=== PATIENT | male | born 2000 | race Hispanic/Latino ===

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

== ENCOUNTER 2020-11-17 19:06 | Emergency (ER) | payer OTHER, SELFPAY ==
[2020-11-17 19:54] LABS: Protime INR 1.05
[2020-11-17 19:59] LABS: ALT/SGPT 37 U/L (12-78); AST/SGOT 33 U/L (15-37); Albumin 4.8 g/dL (3.4-5.0); Alkaline Phosphatase 96 U/L (45-117); BUN Blood Urea Nitrogen 13 mg/dL (7-18); Bicarbonate 25 mmol/L (21-32); Bilirubin Direct 0.2 mg/dL (0-0.2); Bilirubin Total 0.7 mg/dL (0.2-1.0); Glucose Level 224 mg/dL (74-106); Potassium 3.7 mmol/L (3.5-5.1); Protein, Total 8.7 g/dL (6.4-8.2); Sodium Level 140 mmol/L (136-145)
[2020-11-17] MEDS ORDERED: NA CHLORIDE 0.9% 1,000 ML ONE (20:29)
--- NOTE | 2020-11-17 20:29 | RAD REPORT ---
EXAM DESCRIPTION: CT - Head Brain Wo Cont - 11/17/2020 8:22 pm CLINICAL HISTORY: TRAUMA Headache, drowsiness COMPARISON: HEAD BRAIN W O CONTRAST dated 08/29/2013 TECHNIQUE: All CT scans are performed using dose optimization technique as appropriate and may inclu de automated exposure control or mA/KV adjustment according to patient size. FINDINGS: No intracranial hemorrhage, hydrocephalus or extra-axial fluid collection.Areas of gliosis are seen adjacent to the left frontal horn likely related to prior infarcts or trauma.No areas of br ain edema or evidence of midline shift. The paranasal sinuses and mastoids are clear. The calvarium is intact. IMPRESSION: No acute intracranial abnormality.
[2020-11-17] MEDS ORDERED: ONDANSETRON 4 MG/2 ML VIAL ONE (20:33)
[2020-11-17] MEDS ORDERED: FAMOTIDINE 20 MG/2 ML VIAL IV ONE (20:33)
[2020-11-17 20:41] LABS: Absolute Lymphocytes (CBC) 2.6 K/uL (0.7-4.9); Basophils % 0.9 % (0-1.3); Hematocrit 52.3 % (39.6-49.0); Lymphocytes % 27.9 % (15.3-44.8); MPV 8.4 fL (7.6-11.3); RBC Red Blood Cell Count 5.64 M/uL (4.33-5.43)
--- NOTE | 2020-11-17 21:03 | EDPHYS ---
Physician Documentation [facility] Name: Hussein Mejia Age: 20 yrs Sex: Male : 2000 Arrival Date: 11/17/2020 Time: 19:11 Bed 2 Private MD: ED Physician Marvin Guthrie HPI: 11/17 19:16 This 20 yrs old Male presents to ER via Unassigned with complaints of Altered jr8 Mental Status. 19:16 Patient arrived via EMS. They arrived on scene to find pt unresponsive after taking jr8 unknown substance. They administered 2 mg Narcan and pt was awake upon arrival. He reported taking white and blue Percocet. . Historical: - Allergies: 19:13 No Known Allergies; rr5 - Home Meds: 19:13 None [Active]; rr5 - PMHx: 19:13 None; rr5 - PSHx: 19:13 None; rr5 - Immunization history:: Adult Immunizations up to date. - Social history:: Smoking status: unknown Patient uses street drugs, marijuana, Patient/guardian denies using alcohol, tobacco products. ROS: 19:17 Constitutional: Positive for chills, Cold. jr8 19:17 Neuro: Positive for loss of consciousness. 19:18 Cardiovascular: Negative for chest pain, palpitations, and edema, Respiratory: Negative jr8 for shortness of breath, cough, wheezing, and pleuritic chest pain, Abdomen/GI: Negative for abdominal pain, nausea, vomiting, diarrhea, and constipation, MS/Extremity: Negative for injury and deformity. 19:18 All other systems are negative. Exam: 19:19 Constitutional: The patient appears awake, pale. jr8 19:19 Chest/axilla: Inspection: normal, Palpation: is normal. 19:19 Cardiovascular: Rate: normal, Rhythm: regular, Heart sounds: normal. 19:19 Respiratory: the patient does not display signs of respiratory distress, Respirations: normal, Breath sounds: are clear throughout, Respiratory rate: 12 19:19 Abdomen/GI: Inspection: abdomen appears normal, Bowel sounds: normal, Palpation: abdomen is soft and non-tender. 19:19 Neuro: Orientation: is normal, Mentation: responsive to voice lucid, slow to respond, sleepy, Memory: is normal, immediate memory is intact, recent memory is intact, remote memory is intact. 21:03 Eyes: Pupils equal round and reactive to light, extra-ocular motions intact. Lids and jr8 lashes normal. Conjunctiva and sclera are non-icteric and not injected. Cornea within normal limits. Periorbital areas with no swelling, redness, or edema. ENT: Nares patent. No nasal discharge, no septal abnormalities noted. Tympanic membranes are normal and external auditory canals are clear. Oropharynx with no redness, swelling, or masses, exudates, or evidence of obstruction, uvula midline. Mucous membranes moist. Neck: Trachea midline, no thyromegaly or masses palpated, and no cervical lymphadenopathy. Supple, full range of motion without nuchal rigidity, or vertebral point tenderness. No Meningismus. MS/ Extremity: Pulses equal, no cyanosis. Neurovascular intact. Full, normal range of motion. 21:03 Head/face: Noted is contusion, that is superficial, of the forehead. 21:03 Skin: Appearance: Color: normal in color, Temperature: cool, Moisture: dry. Vital Signs: 19:13 BP 148 / 89; Pulse 107; Resp 17; Temp 97; Pulse Ox 100% ; Weight 58.97 kg; Height 5 ft. rr5 10 in. (177.80 cm); Pain 0/10; 20:21 BP 133 / 70; Pulse 99; Resp 16; Pulse Ox 98% ; rr5 20:59 BP 125 / 65; Pulse 80; Resp 16; Pulse Ox 100% ; rr5 21:38 BP 121 / 70; Pulse 85; Resp 19; Pulse Ox 100% ; rr5 19:13 Body Mass Index 18.65 (58.97 kg, 177.80 cm) rr5 MDM: 19:12 Patient medically screened. jr8 20:39 ED course: Pt is awake and alert. He is using urinal on his own and is tolerating PO jr8 intake well. . 20:53 ED course: Patient is going to return home to his sisters house and he verbalizes he jr8 will stay with her tonight. He was educated that his renal function was off but will resolve with hydration that was provided by ED. Pt verbalizes understanding. . 21:01 Data reviewed: vital signs, nurses notes, lab test result(s), EKG, radiologic studies, jr8 CT scan. Data interpreted: Pulse oximetry: on room air is 100 %. Interpretation: normal. Counseling: I had a detailed discussion with the patient and/or guardian regarding: the historical points, exam findings, and any diagnostic results supporting the discharge/admit diagnosis, lab results, radiology results, the need for outpatient follow up, a family practitioner, to return to the emergency department if symptoms worsen or persist or if there are any questions or concerns that arise at home. Response to treatment: the patient's symptoms have resolved after treatment, patient is well hydrated. 11/17 19:12 Order name: Acetaminophen; Complete Time: 20: [facility] 11/17 19:12 Order name: Basic Metabolic Panel; Complete Time: 20: [facility] 11/17 19:12 Order name: CBC with Diff; Complete Time: 20:43 [facility] 11/17 19:12 Order name: ETOH Level; Complete Time: 20:03 [facility] 11/17 19:12 Order name: Hepatic Function; Complete Time: 20: [facility] 11/17 19:12 Order name: PT-INR; Complete Time: 20: [facility] 11/17 19:12 Order name: Ptt, Activated; Complete Time: 20: [facility] 11/17 19:12 Order name: Salicylate; Complete Time: 20:11 [facility] 11/17 19:12 Order name: Urine Drug Screen [facility] 11/17 19:30 Order name: Tylenol Level: Repeat at 2100 per poison control directives [facility] 11/17 19:31 Order name: Acetaminophen Level [facility] 11/17 19:53 Order name: CT Head Brain wo Cont; Complete Time: 20: [facility] 11/17 21:04 Order name: Urine Dipstick-Ancillary [facility] 11/17 19:12 Order name: EKG; Complete Time: 19:13 [facility] 11/17 19:12 Order name: EKG - Nurse/Tech; Complete Time: : [facility] 11/17 19:12 Order name: IV Saline Lock; Complete Time: : [facility] 11/17 19:12 Order name: Labs collected and sent; Complete Time: : [facility] 11/17 19:12 Order name: Urine Dipstick-Ancillary (obtain specimen); Complete Time: 20:58 [facility] 11/17 20:57 Order name: PO challenge; Complete Time: 20:57 rr5 Administered Medications: 19:30 Drug: NS 0.9% 1000 ml Route: IV; Rate: 1000 ml; Site: right antecubital; rr5 20:40 Follow up: Response: No adverse reaction; IV Status: Completed infusion; IV Intake: rr5 1000ml 20:17 Drug: Pepcid (famotidine) 20 mg Route: IVP; Site: right antecubital; rr5 20:57 Follow up: Response: No adverse reaction rr5 20:19 Drug: NS 0.9% 1000 ml Route: IV; Rate: 1000 ml; Site: right antecubital; rr5 21:15 Follow up: Response: No adverse reaction; IV Status: Completed infusion; IV Intake: rr5 1000ml 20:19 Drug: Zofran (Ondansetron) 4 mg Route: IVP; Site: right antecubital; rr5 20:57 Follow up: Response: No adverse reaction rr5 Disposition: 11/18 02:58 Co-signature as Attending Physician, Marvin Guthrie MD I agree with the assessment and tw4 plan of care. Disposition: 11/17/20 21:03 Discharged to Home. Impression: Drug abuse counseling and surveillance, Drug Overdose . - Condition is Stable. - Discharge Instructions: Drug Overdose. - Medication Reconciliation Form, Thank You Letter, Antibiotic Education, Prescription Opioid Use form. - Follow up: Private Physician; When: 2 - 3 days; Reason: Recheck today's complaints, Continuance of care, Re-evaluation by your physician. - Problem is new. - Symptoms have improved. Signatures: Dispatcher [employer] EDCO John Babb PA PA jr8 Marvin Guthrie MD MD tw4 Tito Luque RN RN rr5 Corrections: (The following items were deleted from the chart) 11/17 21:41 21:03 11/17/2020 21:03 Discharged to Home. Impression: Drug abuse counseling and rr5 surveillance; Drug Overdose . Condition is Stable. Forms are Medication Reconciliation Form, Thank You Letter, Antibiotic Education, Prescription Opioid Use. Follow up: Private Physician; When: 2 - 3 days; Reason: Recheck today's complaints, Continuance of care, Re-evaluation by your physician. Problem is new. Symptoms have improved. jr8
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
[2020-11-17 21:04] LABS: Urine Blood Negative (Negative); Urine Glucose Negative (Negative); Urine Protein 1+ (Negative); Urine Specific Gravity >=1.030 (1.005-1.030)
[2020-11-17 21:30] LABS: Barbiturates NEGATIVE (NEGATIVE); Benzodiazepines NEGATIVE (NEGATIVE); Cocaine NEGATIVE (NEGATIVE); METHAMPHETAM NEGATIVE (NEGATIVE); Methadone NEGATIVE (NEGATIVE); Opiates POSITIVE (NEGATIVE); Phencyclidine NEGATIVE (NEGATIVE); THC Cannibis POSITIVE (NEGATIVE)
[2020-11-17 21:48] VITALS: TEMP 97
[2020-11-17 21:51] VITALS: O2SAT 100
[2020-11-17 21:52] VITALS: BP 121/70
--- NOTE | 2020-11-19 08:00 | EKG ---
Test Date: 2020-11-17 Test Time: 19:14:41 Schedule Clerk: MARCO MEASUREMENT RESULTS: Intervals: Rate: 121 WY: 128 QRSD: 88 QT: 312 QTc: 443 [place]: P: 87 WY: 128 QRS: 89 T: 69 INTERPRETIVE STATEMENTS: Sinus tachycardia RSR' or QR pattern in V1 suggests right ventricular conduction delay Junctional ST depression, probably normal Borderline ECG Compared to ECG 05/23/2018 20:28:14 ST (T wave) deviation now present Sinus rhythm no longer present Electronically Signed On 11-19-20 07:58:01 CDT by Constantino Madrid
== END 2020-11-17 21:41 | disposition home or self-care (01) ==
LOC: ER 19:06
DX: T40.2X1A Poisoning by other opioids, accidental (unintentional), initial encounter (principal); Z71.51 Drug abuse counseling and surveillance of drug abuser
CPT/HCPCS: 36415; 70450; 80048; 80076; 80307; 80320; 80329; 81003; 85025; 85610; 85730; 93005; 96361; 96374; 96375; 99284; J2405; J7030